=== PATIENT | male | born 1985 | race African-American/Black ===

== ENCOUNTER → 2021-11-27 | Outpatient (CLI) | payer OTHER ==
[2021-11-27 12:21] LABS: ALBUMIN 3.3 g/dL (3.4-5.0); BILIRUBIN,DIRECT 0.1 mg/dL (0.00-0.20); BILIRUBIN,TOTAL 0.4 mg/dL (0.1-1.0); TOTAL PROTEIN, SERUM 7.7 g/dL (6.4-8.2)
== END | disposition home or self-care (01) ==
LOC: LABMN 11:40
PROVIDERS: ATTEND Chiropractor
DX: M16.0 Bilateral primary osteoarthritis of hip (principal); M19.90 Unspecified osteoarthritis, unspecified site; R94.5 Abnormal results of liver function studies
CPT/HCPCS: 72170; 80076